=== PATIENT | female | born 1975 | race Caucasian/White ===

== ENCOUNTER → 2016-11-10 | Day surgery (SDC) | payer BC ==
[~2016-11-10] MED LIST: Atracurium* 10 MG/ML 10 ML VIAL ONE; Buffered Lidocaine 1% SYR 3ML* 3 ML/SYR SYRINGE INTRADERM ONE; Buffered Lidocaine 1% SYR 3ML* 3 ML/SYR SYRINGE ONE; Bupivacaine 0.25% EPI 200,000* 30 ML SDV ONE; Dexamethasone IV* 4 MG/ML 1 ML (4 MG) ONE; Famotidine IV* 10 MG/ML 2 ML (20 mg) IV ONE; Famotidine IV* 10 MG/ML 2 ML (20 mg) ONE; Glycopyrrolate IV* 0.2 MG/ML 1 ML VIAL ONE; KETAMINE HCL* 50 MG/ML 10 ML VIAL ONE; Ketorolac INJ* 30 MG/ML 1 ML VIAL ONE; Lidocaine 2% PF* 10 ML AMP ONE; Midazolam* 1 MG/ML 5 ML VIAL (5 MG) ONE; Morphine INJ* 10 MG/ML 1 ML CARPUJECT ONE; Morphine INJ* 2 MG/ML 1 ML CARPUJECT IV PRN; Neostigmine Methylsulfate* 2 MG/2 ML SYRINGE ONE; Ondansetron INJ* 2 MG/ML VIAL ONE; PROCHLORPERAZINE INJ 5 MG/ML 2 ML VIAL IV PRN; Propofol* 10 MG/ML 20 ML BTL IV PUSH ONE; ceFAZolin 2 GM PREMIX (*) 2 GM/50 ML BAG IVPB ONE; fentaNYL* 50 MCG/ML 2 ML VIAL (100 MCG VIAL) ONE; oxyCODONE/Acetamin 5/325 MG* TAB ONE; oxyCODONE/Acetamin 5/325 MG* TAB PO PRN
[2016-11-10 12:42] LABS: UR Preg Internal Control QC Line Present
--- NOTE | 2016-11-10 16:06 | SURGPN ---
Brief Operative Note - Surgery Procedures: Procedures Pre-OP Diagnoses: chronic cholecystitis Post-op Diagnosis: same Procedure: Laparoscopic cholecystectomy Surgeon: Fawn Asst: Jose Anethesia: CAMILO Wright [place] EBL: minimal IVF: 1300cc LR Specimen: gallbladder Drains: none
[2016-11-10] MEDS: fentaNYL* 50 MCG/ML 2 ML VIAL (100 MCG VIAL) IV PRN ×4 (16:58→17:16)
[2016-11-10 17:46] VITALS: BP 126/69
--- NOTE | 2016-11-16 03:40 | OP ---
DATE OF OPERATION: 11/10/16 [facility] DATE OF : 77 SURGEON: Paul Augustine MD NATIONAL GUARD MEMBER: BETH Horton ANESTHESIOLOGIST: Dr. Willoughby. ANESTHESIA: General. PRE-OP DIAGNOSIS: Chronic cholecystitis. POST-OP DIAGNOSIS: Chronic cholecystitis. OPERATIVE PROCEDURE: Laparoscopic cholecystectomy. ESTIMATED BLOOD LOSS: Minimal. FLUIDS: 1300 cc of crystalloid fluid given. SPECIMEN: Gallbladder. DRAINS: None. DESCRIPTION OF PROCEDURE: The patient was identified in the preoperative area, brought to the OR, placed on the operating table in supine position. Preoperative antibiotics were given. Sequential devices were placed on bilateral lower extremity. General anesthesia was induced. The patient's abdomen was prepped and draped in the standard surgical fashion, and a time-out was performed. Folds of the umbilicus were elevated anteriorly and a Veress needle was inserted into the abdominal cavity, which was then allowed to insufflate to a pressure of 15 mmHg. The patient tolerated the insufflation well. Just above this Veress needle, a 5 mm trocar was inserted through a separate incision. Laparoscope was inserted through this. There was no evidence of injury from the trocar insertion or from the Veress needle, which was then removed. Additional trocars were then placed in the following positions: A 12 mm in the subxiphoid area and two 5 mm along the right costal margin. Fundus of the gallbladder was identified. This was grasped and elevated above the liver. The infundibulum was then identified. This was grasped and retracted to the right lower quadrant exposing the critical view. A long cystic duct was identified along with the common bile duct. Next, dissection was carried out taking the medial aspect and lateral aspect of the peritoneal attachments to the gallbladder down with electrocautery. Cystic duct and cystic artery were identified and isolated. They were both doubly clipped and ligated, and the gallbladder was removed from the liver bed, placed in endoscopic retrieval bag and placed over the liver. Review of the cystic duct stump and cystic artery stump showed no bleeding or bile leak. Some oozing was noted at the liver bed. This was controlled with electrocautery. Next, the gallbladder in its endoscopic retrieval bag was brought out through the subxiphoid port site and passed off as a specimen. The abdomen was allowed to collapse. Trocars were removed under direct vision and all four skin incisions were reapproximated with 4-0 Monocryl, subcuticular sutures followed by Steri-Strips and sterile dressing. The patient tolerated the procedure well , was woken up in the OR, and transferred to the PACU in stable condition. CC: Ariel Mckeon MD* [id number]/[facility] #: [id number] MTDD
== END | disposition home or self-care (01) ==
LOC: OR 11:38
PROVIDERS: ATTEND Surgery
DX: K81.1 Chronic cholecystitis (principal); K21.9 Gastro-esophageal reflux disease without esophagitis; F17.210 Nicotine dependence, cigarettes, uncomplicated
CPT/HCPCS: 81025; 88304; A9270-GY; J0690; J1100; J1885; J2001; J2250; J2270; J2405; J2704; J3010